=== PATIENT | female | born 1965 | race Caucasian/White ===

== ENCOUNTER 2025-01-12 15:10 | Emergency (ER) | payer BC ==
[2025-01-12] MEDS: Pantoprazole 80 MG in Sodium Chloride 0.9% 10 ML IVPUSH ONE (15:50)
[2025-01-12] MEDS: Ondansetron 4 MG/2 ML SDV IVPUSH ONE (15:50)
[2025-01-12 16:21] LABS: MEAN PLATELET VOLUME 9.6 fL (9.4-12.3); NRBC ABSOLUTE 0.00 K/uL (0.00-0.02); NRBC PERCENT 0.0 /100WBC (0.0-0.2); PLATELET COUNT,PLT 151 K/uL (150-400); WHITE BLOOD CELL COUNT,WBC 9.06 K/uL (3.9-11.3)
[2025-01-12 16:25] LABS: A/G RATIO 1.1 (0.9-1.6); ALANINE AMINOTRANSFERASE,ALT 94.0 IU/L (14-63); ASPARTATE AMNIOTRANSFERASE,AST 77.0 IU/L (15-37); BILIRUBIN TOTAL 1.4 mg/dL (0.2-1.0); BLOOD UREA NITROGEN,BUN 61.0 mg/dL (7.0-18.0); CARBON DIOXIDE,CO2 20.6 mmol/L (21.0-32.0); CHLORIDE,CL 87.0 mmol/L (98-107); CREATININE 1.4 mg/dL (0.6-1.0); EST CRCL DRUG DOSING (CG) 33.46 mL/min; GLUCOSE RANDOM 159.0 mg/dL (74-106); POTASSIUM,K 4.0 mmol/L (3.5-5.1); PROTEIN TOTAL,TP 7.9 g/dL (6.4-8.2); SODIUM,NA 130.0 mmol/L (136-145)
[2025-01-12 16:26] LABS: ESTIMATED GFR 44.0 mL/min (>60)
[2025-01-12 16:44] LABS: RED BLOOD CELL COUNT 3.45 M/uL (4.10-5.30)
[2025-01-12 16:59] LABS: LYMPHOCYTES ABSOLUTE MAN 1.45 K/uL (1.00-4.80); LYMPHOCYTES PERCENT MAN 16 % (24-44); MONOCYTES ABSOLUTE MAN 0.82 K/uL (0.00-0.80); MONOCYTES PERCENT MAN 9 % (0-8); MYELOCYTE ABSOLUTE MAN 0.18; MYELOCYTE PERCENT MAN 2 %; SEG NEUTROPHILS ABSOLUTE MAN 6.61 K/uL (1.80-7.70); SEG NEUTROPHILS PERCENT MAN 73 % (41-71)
[2025-01-12] MEDS: Iopamidol 755 MG/ML 500 ML Multipack Bottle IVPUSH STA (18:28)
[2025-01-12 20:00] LABS: APPEARANCE,URINE CLEAR; GLUCOSE,URINE NEGATIVE (NEGATIVE); OCCULT BLOOD,URINE TRACE-LYSED (NEGATIVE)
[2025-01-12 20:21] LABS: EPITHELIAL CELLS,URINE RARE (NONE-FEW)
[2025-01-12] MEDS: Sucralfate Suspension 1 GM/10 ML Cup PO ONE (20:38)
== END 2025-01-12 22:18 | disposition home or self-care (01) ==
LOC: MW.ED 15:10
DX: K29.70 Gastritis, unspecified, without bleeding (principal); E87.6 Hypokalemia; E80.7 Disorder of bilirubin metabolism, unspecified; K76.0 Fatty (change of) liver, not elsewhere classified; R74.8 Abnormal levels of other serum enzymes; I10 Essential (primary) hypertension; E11.9 Type 2 diabetes mellitus without complications; E78.00 Pure hypercholesterolemia, unspecified; Z79.899 Other long term (current) drug therapy; Z75.3 Unavailability and inaccessibility of health-care facilities
CPT/HCPCS: 36415; 74177; 80053; 81001; 83690; 83735; 85025; 86850; 86900; 86901; 96361; 96374; 96375; 99285; A9270; J2405; J2470; J7030; Q9967; 99283